=== PATIENT | male | born 1950 | race Caucasian/White ===

== ENCOUNTER 2017-03-11 13:56 | Emergency (ER) | payer BC ==
[~2017-03-11] VITALS: Ht 167.6 cm; Wt 72.7 kg
[2017-03-11] MEDS ORDERED: IV NORMAL SALINE 50ML 50 ML ONE (14:13)
[2017-03-11] MEDS ORDERED: cefTRIAXone SODIUM 1 GM VIAL IV ONE (14:14)
[2017-03-11] MEDS ORDERED: IV NORMAL SALINE 1,000ML 1,000 ML IV SCH (14:15)
[2017-03-11] MEDS: fentaNYL PF 100 MCG/2 ML VIAL IV PRN ×2 (14:23→14:46)
[2017-03-11 14:26] VITALS: BP 160/89
[2017-03-11] MEDS: HYDROmorphone PF 1 MG/ML DISP.SYRIN IV/SQ PRN ×3 (15:19→16:12)
--- NOTE | 2017-03-11 15:22 | PHYS DOC ---
General Chief Complaint: PARTIAL AMPUTATION/AVULSION Stated Complaint: PARTIAL FINGER AMPUTATION Time Seen by MD: 14:07 Source: patient Exam Limitations: no limitations Problems: History of Present Illness Initial Comments Patient is a 66-year-old [id number] male who comes to the ED after sawing off the tips of his right second and third fingers. Patient states he was using a table saw at home approximately 45 minutes ago when he accidentally caught his right second and third fingers in the table saw. He wrapped his fingers in a towel and came to the emergency department for treatment. Complains of severe pain in his right second and third fingers denies any other injury. His tetanus is up-to-date he has no ongoing medical problems takes no daily medications he is a pack-a-day smoker. Onset: just prior to arrival Severity: severe Pain/Injury Location: right 2nd finger, right 3rd finger Method of Injury: incised Modifying Factors: worse with jarring, worse with movement, improves with pain medication Allergies: Coded Allergies: erythromycin base (Verified Allergy, Unknown, 03/11/17) Past Medical History Medical History: no pertinent history Surgical History: noncontributory Social History Smoker: cigarettes Alcohol: none Drugs: none Review of Systems Constitutional: denies chills, denies fever Respiratory: denies cough, denies shortness of breath Cardiovascular: denies chest pain, denies palpitations Musculoskeletal: see HPI Skin: see HPI Physical Exam General Appearance: WD/WN, mild distress Neck: non-tender, supple Cardiovascular/Respiratory: normal peripheral pulses, no respiratory distress Back: no CVA tenderness, no vertebral tenderness Wrist: normal inspection, non-tender, no evidence of injury Hand: laceration (amputation of the distal second and third fingers, bone is exposed at the third finger there is minimal nail involvement on either finger. The tissues anteriorly that are not missing are shredded and nonviable. There is no active bleeding no foreign bodies there is pain with palpation.) Neurologic/Tendon: normal motor functions, normal tendon functions, responds to pain, no evidence tendon injury Psychiatric: alert, oriented x 3 Skin: warm/dry (finger injuries as above) Orders, Labs, Meds Right fingers: Distal amputation of the right second and third fingers without apparent bony involvement. Interpreted by Dr. Moore Digital block was performed by me with 2% lidocaine for analgesia, the patient also received Rocephin 1 g IV as well as multiple doses of fentanyl and Dilaudid. The wound was cleansed by ED staff and dressed per the hand surgeon's recommendations. I discussed the treatment plan proposed by the hand surgeon and the patient expressed agreement and understanding. He was discharged home in stable condition free of pain. 1706: I discussed the patient with Dr. Bateman Hand plastic surgery specialist, she requested after cleaning the patient be splinted with metal finger splints and Xeroform gauze with Bactroban and bulky gauze dressing. Patient to call Monday to schedule same day or next day appointment, see departure instructions. 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 Follow-up with Dr. Bateman [id number] [facility] [address] [place] [address] Call [phone] Monday to set up next available appointment. Leave dressing in place until follow-up with hand surgeon. If you bleed through the dressing simply add more gauze. Elevate right hand at all times when possible to decrease the bleeding and throbbing discomfort. Prescription: Bactrim DS, Percocet 7.5 #30 Take medications separately and with food to avoid GI upset and nausea. Drink extra fluids and take ijzl-[id number]-rauxewi stool softeners to avoid opiate constipation. Follow-up with hand surgeon as above. Return to ED with new or changing symptoms. DEVON MOORE DO Mar 11, 2017 15:22
[2017-03-11] MEDS ORDERED: SULF1TAB24 PO (17:26)
[2017-03-11] MEDS ORDERED: OXYC-327 PO (17:26)
[2017-03-11] MEDS ORDERED: LIDOCAINE 2% 20 ML VIAL. IJ ONE (17:30)
[2017-03-11] MEDS ORDERED: MUPIROCIN 2% TOPICAL OINTMENT 22GM TUBE. TP SCH (17:30)
--- NOTE | 2017-03-12 08:49 | RAD ---
Exam: Right fingers radiograph 03/11/2017 at 1448 hours Indication: Tablesaw injury to the second and third fingers Comparison: None available Technique: 3 views the right fingers are provided. Findings: There is no acute fracture or dislocation. No joint space narrowing. Soft tissue defect involving the distal aspect of the second and third digit. No osseous erosion or soft tissue gas. Bone mineralization is within normal limits. Impression: Soft tissue defect involving the distal aspect of the second and third digit with associated swelling. No underlying osseous abnormality.
== END 2017-03-11 17:52 | disposition home or self-care (01) ==
LOC: ER 14:03
DX: S68.110A Complete traumatic metacarpophalangeal amputation of right index finger, initial encounter (principal); S68.112A Complete traumatic metacarpophalangeal amputation of right middle finger, initial encounter; F17.210 Nicotine dependence, cigarettes, uncomplicated; Z88.1 Allergy status to other antibiotic agents; W23.0XXA Caught, crushed, jammed, or pinched between moving objects, initial encounter; Y93.89 Activity, other specified; Y99.8 Other external cause status; Y92.89 Other specified places as the place of occurrence of the external cause
CPT/HCPCS: 29130; 64450; 73140; 96365; 96375; 96376; J0696; J1170; J3010; 99284-25; J2001; J7030

== ENCOUNTER → 2020-02-19 | Outpatient (CLI) | payer MEDICARE, BC ==
[~2020-02-19] MED LIST: OXYC1TAB19 PO; SULF1TAB24 PO
--- NOTE | 2020-02-19 11:52 | RAD ---
EXAM: 3 views of the left wrist DATE: 02/19/2020 12:00 AM INDICATION: Reason: LEFT WRIST PAIN / Spl. Instructions: / History: COMPARISON: No Prior FINDINGS: No acute fracture or dislocation. Joint spaces are preserved without significant degenerative/proliferative change. No significant soft tissue swelling. Sclerotic foci within the distal radius and capitate likely bone islands. IMPRESSION: No acute fracture or dislocation. Electronically signed by: Jonh Vail MD (02/19/2020 11:49 AM) [id number]
--- NOTE | 2020-02-19 11:52 | RAD ---
EXAM: 3 Views Left Shoulder DATE: 02/19/2020 12:00 AM INDICATION: Reason: LEFT SHOULDER PAIN / Spl. Instructions: / History: COMPARISON: No Prior FINDINGS: There is no evidence for acute fracture or dislocation. AC joint is congruent. Small glenoid rim osteophytes are seen. Humeral head is not high riding. IMPRESSION: 1. No acute fracture or dislocation. 2. Left glenohumeral joint degenerative changes are seen. Electronically signed by: Jonh Vail MD (02/19/2020 11:49 AM) [id number]
== END | disposition home or self-care (01) ==
LOC: DXRAD 10:31
PROVIDERS: ATTEND Orthopaedic Surgery
DX: M19.012 Primary osteoarthritis, left shoulder (principal); M25.712 Osteophyte, left shoulder; M25.532 Pain in left wrist
CPT/HCPCS: 73030; 73110